=== PATIENT | male | born 1935 | race Two or more races ===

== ENCOUNTER 2022-01-08 22:28 | Emergency (ER) | payer OTHER ==
[~2022-01-08] VITALS: Ht 167.6 cm; Wt 55.8 kg
--- NOTE | 2022-01-08 22:40 | NUR ---
[id number] FROM [facility] C/O SOB ON RA. PLACED ON BED, AWAKE-ALERT RESPONDING TO VERBAL STIMULI BY OPENING EYES NON VERBAL, SATURATING AT 98% ON NON-REBREATHING MASK AT 15LIT. O2.
--- NOTE | 2022-01-08 22:58 | NUR ---
[facility] CONTACTED AND REQUESTED COPY OF POLST. SPOKE WITH NEETU HERNANDEZ CERTIFIED VETERINARY TECHNICIAN
--- NOTE | 2022-01-08 23:00 | NUR ---
X-RAY TECH. AT BEDSIDE
--- NOTE | 2022-01-08 23:09 | NUR ---
REPAIR TECH AT BEDSIDE
[2022-01-08 23:28] LABS: EOSINOPHILS % (AUTO) 0.2 % (0.0-6.0); HEMATOCRIT 26 % (39-51); LYMPHOCYTES # (AUTO) 0.3 K/uL (0.8-4.8); LYMPHOCYTES % (AUTO) 4.3 % (20.0-44.0); MEAN CORPUSCULAR HGB CONC 31 g/dl (31.0-36.0); MEAN CORPUSCULAR VOLUME 94 fL (80-96); MONOCYTES # (AUTO) 0.3 K/uL (0.1-1.30); MONOCYTES % (AUTO) 3.9 % (2.0-12.0); NEUTROPHILS % (AUTO) 91.6 % (43.0-81.0); PLATELET COUNT (AUTO) 268 K/uL (150-450); RED BLOOD CELL COUNT(AUTO) 2.73 MIL/uL (4.5-6.0); WHITE BLOOD COUNT (AUTO) 6.6 K/uL (4.3-11.0)
--- NOTE | 2022-01-08 23:31 | NUR ---
CALLED [facility] AND SPOKE WITH PAULA TO REQUEST COPY OF POLST. PT DOES NOT HAVE THE ACTUAL POLST.
--- NOTE | 2022-01-08 23:33 | NUR ---
RECEIVED FAX FROM [facility] OF AN ORDER THAT PATIENT IS DNR AND DNI BUT NO ACTUAL COPY SENT. CALLED AND SPOKE WITH MAXIMINO AND NO COPY OF POLST ON FILE.
[2022-01-08 23:38] LABS: CALCIUM, SERUM 8.1 mg/dL (8.5-10.1); CARBON DIOXIDE 32 mmol/L (21-32); CHLORIDE 109 mmol/L (98-107); GLUCOSE 109 mg/dL (74-106); SODIUM SERUM 140 mmol/L (136-145); UREA NITROGEN, BLOOD 20 mg/dL (7-18)
[2022-01-08] MEDS ORDERED: IOHEXOL-350 100 ML VIAL IV ONE (23:52)
--- NOTE | 2022-01-08 23:53 | NUR ---
PT TAKEN TO CT VIA [facility]
--- NOTE | 2022-01-09 00:07 | NUR ---
PT RETURNED TO ER BED [address]
--- NOTE | 2022-01-09 00:37 | NUR ---
FELIC[facility] COLLECTED AND SENT TO LAB
--- NOTE | 2022-01-09 00:38 | NUR ---
CALLED DAVID SIMENTAL MD
[2022-01-09] MEDS ORDERED: CEFTRIAXONE 1GM BAG (ER ONLY) 1 GM/50 ML PIGGYBACK IV ONE (02:00)
[2022-01-09] MEDS ORDERED: AZITHROMYCIN 500 MG in IV D5W 250 ML IV ONE (02:00)
--- NOTE | 2022-01-09 02:07 | NUR ---
DR OANH LANDIS ON PHONE CALL WITH DR. EARNESTINE HERNANDEZ EPRP
[2022-01-09] MEDS ORDERED: AZITHROMYCIN 500 MG VIAL ONE (02:24)
[2022-01-09] MEDS ORDERED: CEFTRIAXONE 1GM BAG (ER ONLY) 100 ML IV ONE (02:24)
[2022-01-09] MEDS ORDERED: Z GUARD REMEDY 4 OZ OINT TP PRN (03:00)
[2022-01-09] MEDS ORDERED: ONDANSETRON HCL/PF 4 MG/2 ML VIAL IVP PRN (03:00)
[2022-01-09] MEDS ORDERED: MAGNESIUM HYDROXIDE 30 ML UDC PO PRN (03:00)
[2022-01-09] MEDS ORDERED: MAG HYDROX/AL HYDROX/SIMETH 30 ML UDC PO PRN (03:00)
[2022-01-09] MEDS ORDERED: ZOLPIDEM TARTRATE 5 MG TABLET PO PRN (03:00)
[2022-01-09] MEDS ORDERED: LEVOFLOXACIN 500 MG /D5W 100ML 500 MG in PREMIX 1 EA IV SCH (03:00)
[2022-01-09] MEDS ORDERED: ACETAMINOPHEN 325 MG TABLET PO PRN (03:00)
--- NOTE | 2022-01-09 03:40 | NUR ---
ACCEPTED AT [facility] DR CARL NEFF MD ALS PRN ETA [id number]
[2022-01-09 03:44] VITALS: BP 131/86
--- NOTE | 2022-01-09 03:46 | NUR ---
PT SATTING 75% ON NRB 15LPM; DR. OANH ALNDIS AWARE.
--- NOTE | 2022-01-09 03:48 | NUR ---
DR. OANH LANDIS ON PHONE WITH REGARDING PT'S CONDITION
--- NOTE | 2022-01-09 03:48 | NUR ---
CALLED [facility] TO HAVE DR. HUGO SPEAK WITH DR. COLBY
--- NOTE | 2022-01-09 03:54 | NUR ---
RN WITNESSED PATIENT WITH NO RESPITATIONS; CHEST DOES NOT RISE OR FALL. RN CALLED DR. HUGO & CHARGE NURSE TO BEDSIDE. NO PULSE PALPATED. PT IN VTACH. PUPILS NONREACTIVE TO LIGHT. DR. OANH LANDIS CALLED TIME OF [id number]
--- NOTE | 2022-01-09 04:05 | NUR ---
CALLED [facility] & SPOKE TO ARDEN. NOT A CANDIDATE FOR [facility] CASE.
--- NOTE | 2022-01-09 04:38 | NUR ---
DR. GROVE ON THE PHONE WITH DR. HUGO FOR UPDATE, MADE AWARE THAT THE PATIENT HAVE . OBTAINED TECHNICAL ACCOUNT EXECUTIVE - DR. JUNIOR GARCIA.
--- NOTE | 2022-01-09 05:05 | NUR ---
POST MORTUM CARE DONE, BODY LABELLED, AND BELONGINGS LIST DONE.
--- NOTE | 2022-01-09 06:24 | NUR ---
[place] [facility] [place]
== END 2022-01-09 06:29 ==
LOC: ER 22:31
DX: J18.9 Pneumonia, unspecified organism (principal); J91.8 Pleural effusion in other conditions classified elsewhere; R09.02 Hypoxemia; Z66 Do not resuscitate; Z20.822 Contact with and (suspected) exposure to COVID-19; J43.9 Emphysema, unspecified
CPT/HCPCS: 99291; 71275; 71045; 93005; 85025; 80048; 36415; 84484; 96365; 96367; 87426; 87081; 87040; Q9967; J0456; J0696; C9803; J7060